=== PATIENT | male | born 1985 ===

== ENCOUNTER 2018-08-12 11:49 | Observation (INO) | payer OTHER | END 2018-08-13 13:42 | disposition home or self-care (01) | LOC: C.ER 11:49 → C.9E 14:52 → C.6T 15:21 ==

== ENCOUNTER 2018-10-08 10:06 | Outpatient (CLI) | payer SELFPAY | END 2018-10-08 10:07 | disposition home or self-care (01) | LOC: C.USIC 10:06 | DX: R94.5 Abnormal results of liver function studies (principal) ==